=== PATIENT | male | born 1990 | race Caucasian/White ===

== ENCOUNTER → 2016-04-26 | Outpatient (CLI) | payer BC ==
[~2016-04-26] VITALS: Ht 162.6 cm; Wt 77.0 kg
[2016-04-26 14:44] VITALS: BP 119/70; PULSE 57; Ht 162.6 cm; Wt 77.0 kg
== END | disposition home or self-care (01) ==
LOC: C.NEUR 14:10
PROVIDERS: ATTEND Internal Medicine Pulmonary Disease
DX: R06.83 Snoring (principal); G47.8 Other sleep disorders; R53.82 Chronic fatigue, unspecified

== ENCOUNTER → 2016-05-10 | Outpatient (CLI) | payer BC ==
--- NOTE | 2016-05-13 22:52 | POLYSOMNOGRAPH REPORT ---
CLINICAL DATA: A 25-year-old male with snoring, unrefreshing sleep and excessive daytime sleepiness, referred by Dr. Sarkar of [facility] for evaluation of sleep apnea. On the evening of 05/10/2016, a home sleep apnea test was performed using a [employer] type 3 monitor. The patient has a BMI of 23.57. RECORDING RESULTS: Total recording time was 10 hours. The patient's estimated sleep time and patient monitoring time was 7.6 hours. RESPIRATORY DATA: No evidence of clinically significant sleep apnea was seen. The ANA was 1.1. There were 7 central apneic episodes and 1 hypopneic episode recorded. The longest respiratory event was 19 seconds. No hypoxemia was seen. Oxygen mela was 91%. Mean saturation was 95%. HEART RATE DATA: Heart rates ranged from 42-49 beats per minute. SNORING DATA: Snoring was recorded intermittently through the night. IMPRESSION: No evidence of clinically significant sleep apnea/hypopnea, nocturnal hypoxemia or abnormal limb movements to explain this patient's symptoms. RECOMMENDATIONS: The patient should continue to practice good sleep hygiene. GENEVIEVE
== END | disposition home or self-care (01) ==
LOC: C.NEUR 11:51
PROVIDERS: ATTEND Internal Medicine Pulmonary Disease
DX: R06.83 Snoring (principal)

== ENCOUNTER → 2016-06-07 | Outpatient (CLI) | payer BC ==
[~2016-06-07] VITALS: Ht 180.3 cm; Wt 76.4 kg
[2016-06-07 13:08] VITALS: BP 121/74; PULSE 66; Ht 180.3 cm; Wt 76.4 kg
== END | disposition home or self-care (01) ==
LOC: C.NEUR 12:31
PROVIDERS: ATTEND Internal Medicine Pulmonary Disease
DX: R06.83 Snoring (principal); G47.8 Other sleep disorders; R53.82 Chronic fatigue, unspecified